=== PATIENT | female | born 1985 | race Caucasian/White ===

== ENCOUNTER 2018-08-22 10:46 | Emergency (ER) | payer BC ==
[~2018-08-22] VITALS: Ht 170.2 cm; Wt 71.4 kg
[2018-08-22 10:58] VITALS: Ht 170.2 cm; Wt 71.4 kg
[2018-08-22 11:22] VITALS: BP 116/75
== END 2018-08-22 11:22 | disposition home or self-care (01) ==
LOC: ED 10:46
DX: O26.893 Other specified pregnancy related conditions, third trimester (principal); S39.012A Strain of muscle, fascia and tendon of lower back, initial encounter; Z3A.29 29 weeks gestation of pregnancy; W01.0XXA Fall on same level from slipping, tripping and stumbling without subsequent striking against object, initial encounter; Y93.89 Activity, other specified; Y92.89 Other specified places as the place of occurrence of the external cause; Y99.8 Other external cause status